=== PATIENT | male | born 1960 | race Caucasian/White ===

== ENCOUNTER 2021-07-27 12:01 | Inpatient (IN) | payer MEDICARE ==
[~2021-07-27] VITALS: Ht 175.3 cm; Wt 65.3 kg
[~2021-07-27 12:01] MED LIST: ALBUTEROL2.5 MG/3 M INH; ALL DAY ALLERGY10 M3 PO; ASPIR 8181 MG PO; CALCIUM + D SO1 EACH PO; FLOMAX 0.4 MG0.4 MG PO; FOSAMAX70 MG PO; HYDROCODON-ACE1 EAC6 PO; IMDUR ER TAB 6060 MG PO; LISINOPRIL10 MG PO; LOPRESSOR 25 MG25 MG PO; MOBIC15 MG PO; NEURONTIN600 MG PO; PANTOPRAZOLE SO40 MG PO; PLAVIX 75 MG TA75 MG PO; QUDEXY XR50 MG PO; RANEXA1000 MG PO; RANITIDINE HCL150 M1 PO; REQUIP0.25 MG PO; SPIRIVA18 MCG INH; TERAZOSIN HCL1 MG PO; TRAZODONE HCL50 MG PO; TRELEGY ELLIPT1 EACH INH; ZOCOR 40 MG TAB40 MG PO; ZOCOR40 MG PO
[2021-07-27 12:30] LABS: RED BLOOD COUNT 4.94 M/UL (4.20-5.50)
[2021-07-27 12:51] LABS: BUN/CREATININE RATIO 22 (0-10)
[2021-07-27] MEDS ORDERED: NITROGLYCERIN0.4 MG SL (14:55)
[2021-07-27] MEDS ORDERED: ALENDRONATE SOD70 MG PO (14:55)
[2021-07-27] MEDS ORDERED: ASPIRIN EC81 MG PO (14:55)
[2021-07-27] MEDS ORDERED: IPRAT-ALBUT 0.5-3 ML INH (14:55)
[2021-07-27] MEDS ORDERED: PROAIR HFA8.5 GM INH (14:56)
[2021-07-27] MEDS ORDERED: ESOMEPRAZOLE MA40 MG PO (14:56)
[2021-07-27] MEDS ORDERED: PREDNISONE 20 M20 MG PO (14:57)
[2021-07-27 20:57] LABS: BUN/CREATININE RATIO 19 (0-10)
[2021-07-28 03:26] LABS: HEMOGLOBIN 12.8 gm/dl (14.0-17.5); RED BLOOD COUNT 4.56 M/UL (4.20-5.50)
[2021-07-28 03:27] LABS: WHITE BLOOD COUNT 7.9 K/UL (4.5-11.0)
[2021-07-28 04:11] LABS: BUN/CREATININE RATIO 21 (0-10)
[2021-07-29 05:05] LABS: HEMOGLOBIN 12.2 gm/dl (14.0-17.5); RED BLOOD COUNT 4.34 M/UL (4.20-5.50); WHITE BLOOD COUNT 9.7 K/UL (4.5-11.0)
[2021-07-29 05:53] LABS: BUN/CREATININE RATIO 18 (0-10)
[2021-07-30 02:11] LABS: HEMOGLOBIN 12.4 gm/dl (14.0-17.5); RED BLOOD COUNT 4.4 M/UL (4.20-5.50); WHITE BLOOD COUNT 11.6 K/UL (4.5-11.0)
[2021-07-30 04:06] LABS: BUN/CREATININE RATIO 20 (0-10)
[2021-07-30] MEDS ORDERED: METOPROLOL SUCC25 MG PO (10:00)
[2021-07-30] MEDS ORDERED: ATORVASTATIN CA20 MG PO (10:00)
[2021-07-30] MEDS ORDERED: LIPITOR80 MG PO (10:40)
[2021-07-30] MEDS ORDERED: NICOTINE PATCH1 EAC2 TD (10:40)
== END 2021-07-30 12:10 | disposition home or self-care (01) | DRG 247 ==
LOC: ER1 12:01 → CDU 13:49 → PROG CARE 13:49
PROVIDERS: Emergency Medicine; Internal Medicine Cardiovascular Disease; Physician Assistant; ADMIT Internal Medicine
PROC: B24BZZZ Ultrasonography of Heart with Aorta (ICD-10-PCS; 2021-07-28)
PROC: 027034Z Dilation of Coronary Artery, One Artery with Drug-eluting Intraluminal Device, Percutaneous Approach (ICD-10-PCS; principal; 2021-07-29)
PROC: 4A023N7 Measurement of Cardiac Sampling and Pressure, Left Heart, Percutaneous Approach (ICD-10-PCS; 2021-07-29)
PROC: B2111ZZ Fluoroscopy of Multiple Coronary Arteries using Low Osmolar Contrast (ICD-10-PCS; 2021-07-29)
DX: I25.110 Atherosclerotic heart disease of native coronary artery with unstable angina pectoris (principal); J44.1 Chronic obstructive pulmonary disease with (acute) exacerbation; E87.1 Hypo-osmolality and hyponatremia; I10 Essential (primary) hypertension; Z20.822 Contact with and (suspected) exposure to COVID-19; I27.20 Pulmonary hypertension, unspecified; I08.1 Rheumatic disorders of both mitral and tricuspid valves; E78.5 Hyperlipidemia, unspecified; M81.0 Age-related osteoporosis without current pathological fracture; F17.210 Nicotine dependence, cigarettes, uncomplicated; Z95.1 Presence of aortocoronary bypass graft; Z95.5 Presence of coronary angioplasty implant and graft; Z85.118 Personal history of other malignant neoplasm of bronchus and lung; Z79.01 Long term (current) use of anticoagulants; Z79.82 Long term (current) use of aspirin; Z90.2 Acquired absence of lung [part of]; Z83.3 Family history of diabetes mellitus; Z82.49 Family history of ischemic heart disease and other diseases of the circulatory system; Z80.9 Family history of malignant neoplasm, unspecified
CPT/HCPCS: ECHO; 36415; 71045; 71250; 80048; 80053; 80061; 82550; 82553; 83880; 84484; 85025; 85730; 93005; 93306; 94640; 94760; 96374; 99152; 99153; 99285; C1725; C1769; C1874; C1887; C1894; C9600; J0461; J0692; J1644; J2250; J2270; J2930; J3010; J3370; J7040; J7070; Q9967; U0002